=== PATIENT | female | born 1965 | race Caucasian/White ===

== ENCOUNTER 2019-11-24 13:28 | Emergency (ER) | payer OTHER ==
[~2019-11-24] VITALS: Ht 147.1 cm; Wt 54.0 kg
[2019-11-24 13:30] VITALS: BP 115/69
--- NOTE | 2019-11-24 13:43 | NUR ---
PATIENT AMBULATED TO BED 4.
[2019-11-24 14:00] VITALS: BP 115/69
--- NOTE | 2019-11-24 14:00 | NUR ---
Note janaytawanda in ED - 11/24/19 at 1406 by KOLE Patient discharged with v/s stable. Written and verbal after care instructions ABOUT BACTERIAL CONJUNCTIVITIS given and explained. Patient alert, oriented and verbalized understanding of instructions. Ambulatory with steady gait. All questions addressed prior to discharge. ID band removed. Patient advised to follow up with PMD. Rx of CIPROFLOXACIN OPTHALMIC SOLUTION given. Patient educated on indication of medication including possible reaction and side effects. Opportunity to ask questions provided and answered.
--- NOTE | 2019-11-24 14:06 | NUR ---
Patient asssesed, treated, and discharged by Dr Waterman with v/s stable. Written and verbal after care instructions ABOUT BACTERIAL CONJUNCTIVITIS given and explained. Patient alert, oriented and verbalized understanding of instructions. Ambulatory with steady gait. All questions addressed prior to discharge. ID band removed. Patient advised to follow up with PMD. Rx of CIPROFLOXACIN OPTHALMIC SOLUTION given. Patient educated on indication of medication including possible reaction and side effects. Opportunity to ask questions provided and answered.
== END 2019-11-24 14:06 | disposition home or self-care (01) ==
LOC: MED 13:28
DX: H10.33 Unspecified acute conjunctivitis, bilateral (principal)
CPT/HCPCS: 99283